=== PATIENT | male | born 1985 | race Caucasian/White ===

== ENCOUNTER 2022-02-28 20:16 | Emergency (ER) | payer OTHER ==
[~2022-02-28] VITALS: Ht 182.9 cm; Wt 89.8 kg
[2022-02-28] MEDS ORDERED: LORAZEPAM INJ 2 MG/ML VIAL ONE (20:41)
[2022-02-28] MEDS ORDERED: LORAZEPAM INJ 2 MG/ML VIAL IM ONE (21:00)
--- NOTE | 2022-02-28 22:37 | NUR ---
PT IS MEDICALLY CLEARED AND RELEASED UNDER THE CARE OF [employer] OFFICERS IN STABLE CONDITION. PT IS AMBUALTORY ON STEADY GAIT AND LEFT ON HAND CUFFS WITH [employer]
[2022-02-28 22:40] VITALS: BP 122/78
== END 2022-02-28 22:40 ==
LOC: EDBD 20:16 → ER 20:25
DX: F29 Unspecified psychosis not due to a substance or known physiological condition (principal); T65.891A Toxic effect of other specified substances, accidental (unintentional), initial encounter; Y92.89 Other specified places as the place of occurrence of the external cause
CPT/HCPCS: 96372; 99283; J2060